=== PATIENT | female | born 1950 | race Hispanic/Latino ===

== ENCOUNTER 2018-09-20 06:12 | Day surgery (SDC) | payer MEDICARE ==
[2018-09-20] MEDS ORDERED: ECOTRIN PO ONE (06:48)
[2018-09-20] MEDS ORDERED: NACL 0.9% 500 ML 500 ML IV SCH (07:00)
[2018-09-20 07:18] LABS: Basophils # (Auto) 0.1 K/mm3 (0.0-0.1); Basophils % (Auto) 0.8 % (0.0-1.8); Eosinophils # (Auto) 0.2 K/mm3 (0.0-0.4); Eosinophils % (Auto) 2.7 % (0.0-4.3); Hematocrit 41.5 % (30.3-42.9); Hemoglobin 13.9 gm/dl (10.1-14.3); Lymphocytes # (Auto) 2.2 K/mm3 (1.2-5.4); Lymphocytes % (Auto) 33.8 % (13.4-35.0); Mean Corpuscular HGB Conc 34 % (30-34); Mean Corpuscular Volume 88 fl (79-97); Monocytes # (Auto) 0.8 K/mm3 (0.0-0.8); Platelet Count 206 K/mm3 (140-440); Red Blood Count 4.72 M/mm3 (3.65-5.03); Red Cell Distribution Width 12.7 % (13.2-15.2)
[2018-09-20 07:28] LABS: INR 0.83 (0.87-1.13)
[2018-09-20] MEDS ORDERED: HEPARIN/NS 5000 UNIT/500ML(CATH LAB) 1,000 ML IR ONE (08:17)
[2018-09-20] MEDS ORDERED: HEPARIN 10,000 UNITS/10 ML ONE (08:17)
[2018-09-20] MEDS ORDERED: VERSED ONE (08:18)
[2018-09-20] MEDS ORDERED: XYLOCAINE 2% INFILTRATI ONE (08:18)
[2018-09-20] MEDS ORDERED: SUBLIMAZE ONE (08:18)
[2018-09-20] MEDS ORDERED: CALAN ONE (08:18)
[2018-09-20] MEDS ORDERED: NITROGLYCERIN SYRINGE 3 ML ONE (08:18)
[2018-09-20 08:21] LABS: BUN/Creatinine Ratio 20; Blood Urea Nitrogen 12 mg/dL (7-17); Calcium 8.8 mg/dL (8.4-10.2); Hemolysis Index 21
[2018-09-20] MEDS ORDERED: ULTRAM PO PRN (09:09)
--- NOTE | 2018-09-20 09:13 | Short Stay Summary ---
Short Stay Documentation Date of service: 09/20/18 - History H&P: obtained from office - Allergies and Medications Current Medications: Allergies No Known Allergies Allergy (Unverified 09/20/18 06:13) Home Medications Medication Instructions Recorded Confirmed Last Taken Type ALPRAZolam [Xanax TAB] 1 mg PO BID 09/20/18 09/20/18 09/20/18 History Aspirin [Adult Low Dose Aspirin EC] 81 mg PO DAILY 09/20/18 09/20/18 09/18/18 History AtorvaSTATin [Lipitor] 20 mg PO QHS 09/20/18 09/20/18 09/20/18 History Baclofen [Lioresal] 10 mg PO TID 09/20/18 09/20/18 09/20/18 History Gabapentin [Neurontin] 300 mg PO BID 09/20/18 09/20/18 09/19/18 History HYDROcodone/APAP 7.5-325 [[place] 1 each PO Q6HR PRN 09/20/18 09/20/18 09/13/18 History 7.5/325] Linaclotide [Linzess] 145 mg PO DAILY 09/20/18 09/20/18 09/19/18 History glipiZIDE [Glipizide] 10 mg PO DAILY 09/20/18 09/20/18 09/19/18 History metFORMIN [Glucophage] 500 mg PO BID 09/20/18 09/20/18 09/18/18 History Active Medications Sodium Chloride (Nacl 0.9% 500 Ml) 500 mls @ 50 mls/hr IV DIRECT LIZ Stop: 09/20/18 16:59 Last Admin: 09/20/18 07:52 Dose: 50 mls/hr Documented by: - Brief post op/procedure progress note Date of procedure: 09/20/18 Pre-op diagnosis: chest pain Post-op diagnosis: same (non cardiac chest pain) Procedure: see report, normal coronaries and normal lv function Anesthesia: local Estimated blood loss: none Pathology: none - Disposition Condition at discharge: Good Disposition: [id number] TO HOME OR SELFCARE - Discharge Diagnoses (1) Morbid obesity due to excess calories Status: Chronic (2) Hypertension Status: Chronic Qualifiers: Hypertension type: essential hypertension Qualified Code(s): I10 - Essential (primary) hypertension (3) Diabetes mellitus Status: Chronic Qualifiers: Diabetes mellitus type: type 2 Diabetes mellitus medical terminologist insulin use: with medical terminologist use Diabetes mellitus complication status: without complication Qualified Code(s): E11.9 - Type 2 diabetes mellitus without complications; Z79.4 - watermelon inspector (current) use of insulin (4) Hyperlipemia, mixed Status: Chronic (5) Chest pain Status: Chronic Qualifiers: Chest pain type: unspecified Qualified Code(s): R07.9 - Chest pain, unspecified Short Stay Discharge Plan Activity: advance as tolerated Diet: low fat, low cholesterol, low salt, diabetic Special Instructions: hold Metformin (for two days) Follow up with: MATTHEW RICHTER MD [Primary Care Provider] - 7 Days
--- NOTE | 2018-09-20 10:41 | Cardiac Catherization Report ---
LEFT HEART CATHETERIZATION This is a patient of ____. CLINICAL INFORMATION: This is a 67-year-old female with hypertension, diabetes, cholesterol, and morbid obesity, who was at [facility] for chest pain and was recommended for heart catheterization. The patient has recurrent chest pain and also have shortness of breath with exertion and is here for left heart catheterization. Left heart catheterization performed with moderate sedation. Total sedation time was 15 minutes, started at 8:45 a.m. and finished at 8:59 a.m., 1 mg Versed, 50 mcg of fentanyl was given. Left heart catheterization performed in the right radial artery, sterile technique, local anesthesia, 6-Jordanian radial sheath inserted. Left system engaged with a JL3.5 catheter. There is no left main, there is separate ostia for the LAD and circumflex. LAD is a large caliber vessel. It is patent with small diagonals 1 and 2 and 3 are patent. Circumflex is a large caliber vessel, it is patent, goes into large OM1 that is patent. Distal circ and AV groove and is medium caliber vessel. RCA engaged with JR4 catheter, large, dominant vessel, is patent from proximally and distally with a medium caliber PDA, PLV that covers the lateral wall. LV gram done in CYMRAES and FAJARDO view shows normal LV function, LVEDP of 30 mmHg, LV is 167/30, aortic is 161/90. No gradient across the aortic valve on pullback. 5-Jordanian catheters all taken over a guidewire. A 6-Jordanian radial sheath was discontinued. Radial dressing applied. No hematoma, no bleeding. SUMMARY: LAD patent, circ patent, RCA patent, patent coronaries with normal LV function with elevated left end-diastolic pressure. Needs better risk factor modifications for blood pressure, diabetes and weight loss and discussed this in detail with the patient and the patient's family. JOB# [id number] VICTORIA/YONG
[2018-09-22 11:39] VITALS: BP 137/73
== END 2018-09-20 12:25 | disposition home or self-care (01) ==
LOC: CATHLABREC 06:12
PROVIDERS: ATTEND Internal Medicine
DX: R07.89 Other chest pain (principal); R06.02 Shortness of breath; I10 Essential (primary) hypertension; E11.9 Type 2 diabetes mellitus without complications; E78.2 Mixed hyperlipidemia; E78.00 Pure hypercholesterolemia, unspecified; F41.9 Anxiety disorder, unspecified; E66.01 Morbid (severe) obesity due to excess calories; Z68.41 Body mass index [BMI] 40.0-44.9, adult; Z85.89 Personal history of malignant neoplasm of other organs and systems; Z90.721 Acquired absence of ovaries, unilateral; Z79.82 Long term (current) use of aspirin; Z79.899 Other long term (current) drug therapy; Z79.84 Long term (current) use of oral hypoglycemic drugs; Z98.890 Other specified postprocedural states; Z86.711 Personal history of pulmonary embolism; Z90.49 Acquired absence of other specified parts of digestive tract; Z90.710 Acquired absence of both cervix and uterus; Z87.440 Personal history of urinary (tract) infections
CPT/HCPCS: 36415; 80048; 85025; 85610; 85730; 93005; 93010; 93458; 99156; C1894; J1644; J2250; J3010; J7040; Q9967